=== PATIENT | male | born 1965 | race Caucasian/White ===

== ENCOUNTER → 2023-03-21 15:59 | Outpatient (REF) | payer BC, SELFPAY | LOC: HWRAD 15:59 | PROVIDERS: ATTENDING PHYSICIAN Nurse Practitioner Family | DX: Z87.891 Personal history of nicotine dependence (principal) | CPT/HCPCS: 71271 ==

== ENCOUNTER → 2023-05-31 14:57 | Outpatient (REF) | payer BC, SELFPAY | LOC: HWRAD 14:57 | PROVIDERS: ATTENDING PHYSICIAN Nurse Practitioner Family | DX: R10.32 Left lower quadrant pain (principal) | CPT/HCPCS: 76882 ==

== ENCOUNTER 2023-07-29 06:19 | Day surgery (SDC) | payer BC, SELFPAY ==
[2023-07-08 07:44] VITALS: BMI 26.7
[2023-07-29] VITALS (10 sets, daily range): BP systolic 114–125; BP diastolic 71–84; BMI 26.7
[2023-07-29] MEDS: NORMOSOL-R 1000 IV (10:31)
[2023-07-29] MEDS: TYLENOL 1000 MG PO (10:31)
--- NOTE | 2023-07-29 13:25 | W.IMMPOSTOP ---
Surgical Immed Post Op Note
-
Primary Surgeon: Johnathon
Assisting: Sarai BANKS
Pre-op Diagnosis: Left inguinal hernia
Post-op Diagnosis: Same
Procedure Performed: Lysis of adhesions (60 min); Robot assisted laparoscopic repair left inguinal hernia
Anesthesia Type: GETA
Specimen / Cultures: None
Estimated Blood Loss: 10cc
Complications: None immediate
Operative Findings: Extensive adhesions from small bowel, mesentery and omentum to abdominal wall. Lysis performed with blunt sweeps, cold brayden and judicious electrocautery; shallow direct defect, small cord lipoma, fatty cord; XL MID 3D Max
--- NOTE | 2023-07-29 13:27 | OR.RPT ---
Operative Report
Operative Report
Primary Surgeon: Johnathon
Assisting: Sarai BANKS
Pre-op Diagnosis: Left inguinal hernia
Post-op Diagnosis: Same
Procedure Performed: Lysis of adhesions (60 min); Robot assisted laparoscopic repair left inguinal hernia
Anesthesia Type: GETA
Specimen / Cultures: None
Estimated Blood Loss: 10cc
Complications: None immediate
Operative Findings: Extensive adhesions from small bowel, mesentery and omentum to abdominal wall. Lysis performed with blunt sweeps, cold brayden and judicious electrocautery; shallow direct defect, small cord lipoma, fatty cord; XL MID 3D Max
Date of surgery: 07/29/23
Indications:� This 58M developed symptomatic left inguinal hernia. Robot assisted laparoscopic repair was planned.
Description of procedure:� The patient was taken to the operating room and positioned into supine position. The patient�s abdomen was prepped and draped in standard sterile fashion. A time-out was completed verifying correct patient, procedure,
site, positioning, and implants and special equipment prior to beginning this procedure.� The hernia was manually reduced after induction. A stab incision was made in the left upper quadrant, a Veress needle was inserted and proper position was
confirmed by aspiration and saline drop test. Following this, pneumoperitoneum was created with insufflation of carbon dioxide to 12 mmHg. Then a 8mm robotic trocar was inserted at the left upper quadrant away from the midline scar. A laparoscope
was inserted and the area of initial trocar entry was inspected and no injuries were found. The veress was unable to be visualized. A syringe was use to suction from the tip, revealing only air, and a repeat drop test verified the tip was in a low
pressure zone. The veress was removed. The laparoscope was used to bluntly lyse filmy adhesions and sweep down omentum and small bowel away from the abdominal wall to expose an area to the left of midline for the camera trocar. The 8mm trocar was
placed under direct vision here. Robotic brayden were then used to continue lysis of adhesions, clearing filmy and fatty adhesions from the abdominal wall until the site of the right upper quadrant trocar was visible. An 8mm trocar was placed in this
location under direct vision. Lysis of adhesions then continued without touching bowel, using a combination of blunt sweeps, cold brayden and judicious electrocautery. The process of lysis took about 60 minutes.
Both inguinal regions were then inspected and the median umbilical ligament, medial umbilical ligament, and lateral umbilical fold were identified. Attention was turned to the left groin. The peritoneum was incised transversely above the defect and
a flap was developed in the caudad direction. Mark�s ligament was identified ultimately dissected to its junction with the iliac vein and the space of Retzius was developed bluntly.� The dissection was continued inferiorly to the iliopubic tract,
with care taken to avoid injury to the femoral branch of the genitofemoral nerve and the lateral femoral cutaneous nerve. The cord structures were parietalized.
The direct space was inspected and a hernia was identified The defect was shallow and the pseudosac was not everted. The femoral space was inspected a defect was not identified.� The indirect space was inspected and a hernia was not identified. A
small cord lipoma was identified and reduced. The cord was noted to be fatty.
Extra large left MID 3D max mesh was passed through a trocar. The mesh was placed into the preperitoneal space and moved into position to lay flat and completely cover the direct, indirect, and femoral spaces with overlap at the midline. The mesh
was secured into place using 2-0 vicryl suture to Mark�s ligament medially and laterally. Care was taken to avoid the inferolateral triangles containing the iliac vessels and genital nerves. The peritoneal flap was closed over the mesh and secured
with 2-0 monocryl stratafix suture in similar positions of safety. A 14g angiocath was used to decompress the preperitoneal space revealing good seal and all mesh in good position without folding or curling.
After ensuring adequate hemostasis, the trocars were removed and the pneumoperitoneum allowed to escape. The trocar incisions were closed at the skin level using 4-0 monocryl and topical skin adhesive. All counts were correct and the patient
tolerated the procedure well and was taken to the postanesthesia care unit in stable condition.
The assistance of [employer] was required due to the complexity of the procedure. During the procedure he assisted with retraction, resection, and closure of the wound.
--- NOTE | 2023-07-29 13:34 | SUR.PHASEI ---
Rec'd sleepy in bed with HOB elevated low fowlers, Iv infusing well, oriented x 3 by RN, reassured, denies c/o, positioned for comfort with knees bent
--- NOTE | 2023-07-29 13:48 | SUR.PHASEI ---
Arouses easily, c/o 'a littler pressure' in abd, reassured
--- NOTE | 2023-07-29 14:10 | SUR.PHASEI ---
More alert, awakenes easily, states feels bladder pressure, stable for d/c SDS texted
[2023-07-29] MEDS: TORADOL 30 MG IV (16:46)
== END 2023-07-29 17:22 | disposition home or self-care (01) ==
LOC: SDS 06:19
PROVIDERS: ATTENDING PHYSICIAN Surgery; FAMILY PHYSICIAN Nurse Practitioner Family
DX: K40.90 Unilateral inguinal hernia, without obstruction or gangrene, not specified as recurrent (principal)
CPT/HCPCS: 49650; 36415; 93005; C1781

== ENCOUNTER → 2023-10-13 15:23 | Outpatient (REF) | payer BC, SELFPAY | LOC: HWRAD 15:23 | PROVIDERS: ATTENDING PHYSICIAN Nurse Practitioner Family | DX: R10.32 Left lower quadrant pain (principal) | CPT/HCPCS: 72100; 73502 ==

== ENCOUNTER → 2024-01-20 08:20 | Outpatient (REF) | payer BC, SELFPAY | LOC: HWRAD 08:20 | PROVIDERS: ATTENDING PHYSICIAN Nurse Practitioner Family | DX: R10.32 Left lower quadrant pain (principal) | CPT/HCPCS: 74177; Q9967 ==

== ENCOUNTER → 2024-04-24 15:08 | Outpatient (REF) | payer BC, SELFPAY | LOC: HWRAD 15:08 | PROVIDERS: ATTENDING PHYSICIAN Nurse Practitioner Family | DX: Z87.891 Personal history of nicotine dependence (principal) | CPT/HCPCS: 71271 ==

== ENCOUNTER → 2024-10-19 14:12 | Outpatient (REF) | payer BC, SELFPAY | LOC: RAD 14:12 | PROVIDERS: ATTENDING PHYSICIAN Urology; FAMILY PHYSICIAN Nurse Practitioner Family | DX: N40.1 Benign prostatic hyperplasia with lower urinary tract symptoms (principal); R39.14 Feeling of incomplete bladder emptying | CPT/HCPCS: 76872 ==

== ENCOUNTER → 2024-12-04 11:50 | Outpatient (REF) | payer BC, SELFPAY | LOC: HWRAD 11:50 | PROVIDERS: ATTENDING PHYSICIAN Nurse Practitioner Family | DX: M54.50 Low back pain, unspecified (principal); M79.606 Pain in leg, unspecified | CPT/HCPCS: 72110; 73502 ==

== ENCOUNTER → 2024-12-30 09:25 | Outpatient (REF) | payer BC, SELFPAY | LOC: PAVMRI 09:25 | PROVIDERS: ATTENDING PHYSICIAN Physician Assistant; FAMILY PHYSICIAN Nurse Practitioner Family; REFERRING PHYSICIAN Physician Assistant | DX: M54.16 Radiculopathy, lumbar region (principal) | CPT/HCPCS: 72148 ==